=== PATIENT | female | born 1995 | race Caucasian/White ===

== ENCOUNTER 2018-02-17 16:56 | Emergency (ER) | payer OTHER ==
[~2018-02-17] VITALS: Ht 157.5 cm; Wt 59.6 kg
[~2018-02-17 16:56] MED LIST: Bactrim Ds Tab1 EACH PO; CIPR500 PO; HUMALOG; INS70/30I; INSN100I SC; INSR10I SC; INSUASPI; INSUASPI SC; LAMO50 PO; LEVE500 PO; Peri-Colace Ta1 EACH PO; Prenatabs FA T1 EACH PO; RXHYDMOR2 PO; SULTRIDS PO; Triamcinolone A15 GM TOP; ZONI100 PO
[2018-02-17] MEDS ORDERED: LAMOTRIGINE100 MG PO (17:15)
[2018-02-17] MEDS ORDERED: LAMOTRIGINE300 MG PO (17:15)
[2018-02-17 18:43] LABS: BASOPHILS ABSOLUTE AUTO 0.04 K/mm3 (0.00-0.23); BASOPHILS PERCENT AUTO 1 % (0-2); EOSINOPHILS ABSOLUTE AUTO 0.07 K/mm3 (0.00-0.68); EOSINOPHILS PERCENT AUTO 1 % (0-6); Hematocrit 43.5 % (33.0-51.0); Hemoglobin 15.5 g/dL (11.5-16.0); IMMATURE GRAN ABSOLUTE AUTO 0.01 K/mm3 (0.00-0.10); IMMATURE GRAN PERCENT AUTO 0 % (0-1); LYMPHOCYTES ABSOLUTE AUTO 2.02 K/mm3 (0.84-5.20); LYMPHOCYTES PERCENT AUTO 33 % (21-46); MONOCYTES ABSOLUTE AUTO 0.42 K/mm3 (0.16-1.47); MONOCYTES PERCENT AUTO 7 % (4-13); Mean Corpuscular HGB 30.8 pg (26.0-34.0); Mean Corpuscular HGB Conc 35.6 g/dL (31.5-36.5); Mean Corpuscular Volume 87 fL (80-100); NEUTROPHILS ABSOLUTE AUTO 3.52 K/mm3 (1.96-9.15); NEUTROPHILS PERCENT AUTO 58 % (41-73); Platelet Count 220 K/mm3 (150-400); RDW Coefficient Variation 11.7 % (11.7-14.2); RDW Standard Deviation 37.1 fL (35.1-46.3); Red Blood Cell Count 5.03 M/mm3 (3.80-5.20); White Blood Cell Count 6.08 K/mm3 (4.00-11.30)
[2018-02-17 19:06] LABS: Alanine Aminotransfer (ALT/SGP 21 U/L (12-78); Albumin, Blood 4.2 g/dL (3.4-5.0); Albumin/Globulin Ratio 1.2 (0.8-1.8); Alk Phos 100 U/L (50-136); Anion Gap 7 mmol/L (6-16); Aspartate Aminotrans (AST/SGOT 14 U/L (12-37); Beta HCG, Quantitative, Serum 452 mIU/mL (0-3); Bilirubin, Total 1.3 mg/dL (0.1-1.0); Blood Urea Nitrogen 14 mg/dL (8-24); CO2, Blood 27 mmol/L (21-32); Calcium, Blood 9.3 mg/dL (8.5-10.1); Chloride, Blood 106 mmol/L (98-108); Creatinine, Blood 0.78 mg/dL (0.40-1.00); Globulin, Blood 3.5 g/dL (2.2-4.0); Glomerular Filtration Rate >60 (60-); Glucose, Blood 79 mg/dL (70-99); Potassium, Blood 3.6 mmol/L (3.5-5.5); Sodium, Blood 140 mmol/L (136-145); Total Protein, Blood 7.7 g/dL (6.4-8.2)
== END 2018-02-17 19:50 | disposition home or self-care (01) ==
LOC: ER 16:56
PROVIDERS: Internal Medicine
DX: O99.89 Other specified diseases and conditions complicating pregnancy, childbirth and the puerperium (principal); R10.2 Pelvic and perineal pain; Z88.0 Allergy status to penicillin; Z79.899 Other long term (current) drug therapy; Z79.4 Long term (current) use of insulin; O24.911 Unspecified diabetes mellitus in pregnancy, first trimester; E10.9 Type 1 diabetes mellitus without complications
CPT/HCPCS: 36415; 76801; 76817; 76830; 80053; 82947; 84702; 85025; 86900; 86901; 99284

== ENCOUNTER 2018-03-02 21:08 | Emergency (ER) | payer OTHER ==
[~2018-03-02] VITALS: Ht 157.5 cm; Wt 61.7 kg
[~2018-03-02 21:08] MED LIST changes: +LAMOTRIGINE100 MG PO; +LAMOTRIGINE300 MG PO
[2018-03-02] MEDS ORDERED: DIAZ1KIT4 (22:31)
[2018-03-02] MEDS ORDERED: FOLI1 PO (22:32)
[2018-03-02 22:40] LABS: BASOPHILS ABSOLUTE AUTO 0.03 K/mm3 (0.00-0.23); BASOPHILS PERCENT AUTO 0 % (0-2); EOSINOPHILS ABSOLUTE AUTO 0.06 K/mm3 (0.00-0.68); EOSINOPHILS PERCENT AUTO 1 % (0-6); Hematocrit 44.4 % (33.0-51.0); Hemoglobin 15.3 g/dL (11.5-16.0); IMMATURE GRAN ABSOLUTE AUTO 0.02 K/mm3 (0.00-0.10); IMMATURE GRAN PERCENT AUTO 0 % (0-1); LYMPHOCYTES ABSOLUTE AUTO 1.45 K/mm3 (0.84-5.20); LYMPHOCYTES PERCENT AUTO 19 % (21-46); MONOCYTES ABSOLUTE AUTO 0.44 K/mm3 (0.16-1.47); MONOCYTES PERCENT AUTO 6 % (4-13); Mean Corpuscular HGB 30.6 pg (26.0-34.0); Mean Corpuscular HGB Conc 34.5 g/dL (31.5-36.5); Mean Corpuscular Volume 89 fL (80-100); Mean Platelet Volume 9.3 fL (9.1-12.4); NEUTROPHILS ABSOLUTE AUTO 5.71 K/mm3 (1.96-9.15); NEUTROPHILS PERCENT AUTO 74 % (41-73); Platelet Count 191 K/mm3 (150-400); RDW Standard Deviation 38.9 fL (35.1-46.3); White Blood Cell Count 7.71 K/mm3 (4.00-11.30)
[2018-03-02 22:56] LABS: Alanine Aminotransfer (ALT/SGP 23 U/L (12-78); Albumin, Blood 4.4 g/dL (3.4-5.0); Albumin/Globulin Ratio 1.3 (0.8-1.8); Alk Phos 98 U/L (50-136); Anion Gap 6 mmol/L (6-16); Aspartate Aminotrans (AST/SGOT 15 U/L (12-37); Beta HCG, Quantitative, Serum 591 mIU/mL (0-3); Bilirubin, Total 0.3 mg/dL (0.1-1.0); Blood Urea Nitrogen 9 mg/dL (8-24); Bun/Creatinine Ratio 13.4 (12.0-20.0); CO2, Blood 30 mmol/L (21-32); Calcium, Blood 8.7 mg/dL (8.5-10.1); Chloride, Blood 104 mmol/L (98-108); Creatinine, Blood 0.67 mg/dL (0.40-1.00); Globulin, Blood 3.5 g/dL (2.2-4.0); Glomerular Filtration Rate >60 (60-); Glucose, Blood 118 mg/dL (70-99); Potassium, Blood 3.8 mmol/L (3.5-5.5); Sodium, Blood 140 mmol/L (136-145); Total Protein, Blood 7.9 g/dL (6.4-8.2)
[2018-03-02 23:01] LABS: Source, Urine Clean Catch
[2018-03-02 23:05] LABS: Appearance, Urine Cloudy (Clear); Bilirubin, Urine Neg (Neg); Blood, Urine 5+ (Neg); Color, Urine Yellow (P-Yellow); Glucose Qualitative, Urine Neg (Neg); Ketones, Urine Neg (Neg); Leukocyte Esterase, Urine 2+ (Neg); Nitrite, Urine Neg (Neg); Protein, Urine Neg (Neg); Urobilinogen, Urine NORM (Normal)
[2018-03-02 23:13] LABS: Amorphous Light (0-Heavy); Bacteria Many /hpf; Red Blood Cells, Urine TNTC /hpf (0-2); Squamous Epithelial Cells Rare /hpf (Few); White Blood Cells, Urine 0-2 /hpf (0-5)
[2018-03-03] MEDS ORDERED: Macrobid 100 M100 MG PO (00:07)
== END 2018-03-03 00:57 | disposition home or self-care (01) ==
LOC: ER 21:08
PROVIDERS: Emergency Medicine
DX: O03.4 Incomplete spontaneous abortion without complication (principal); N39.0 Urinary tract infection, site not specified; Z88.0 Allergy status to penicillin; Z79.899 Other long term (current) drug therapy; Z79.4 Long term (current) use of insulin; E10.9 Type 1 diabetes mellitus without complications
CPT/HCPCS: 36415; 76817; 80053; 81001; 81025; 84702; 85025; 86900; 86901; 87086; 96372; 99284-25; J2790

== ENCOUNTER → 2018-11-26 | Outpatient (CLI) | payer SELFPAY ==
[~2018-11-26] MED LIST changes: +DIAZ1KIT4; +FOLI1 PO; +Macrobid 100 M100 MG PO
== END | disposition home or self-care (01) ==
LOC: LAB SHORT 12:19 → LAB 12:19
PROVIDERS: Obstetrics & Gynecology
DX: Z01.419 Encounter for gynecological examination (general) (routine) without abnormal findings (principal)
CPT/HCPCS: G0123

== ENCOUNTER → 2020-11-15 | Outpatient (CLI) | payer OTHER ==
[2020-11-15 14:59] LABS: T. vaginalis (DNA Probe) Negative (NEGATIVE)
[2020-11-15 15:00] LABS: Candida species (DNA Probe) Negative (NEGATIVE); G. vaginalis (DNA Probe) Positive (NEGATIVE)
[2020-11-18 13:10] LABS: CHLAMYDIA TRACHOMATIS, NAA Negative (Negative)
== END | disposition home or self-care (01) ==
LOC: LAB 11:13 → LAB SHORT 11:13
PROVIDERS: Advanced Practice Midwife
DX: Z01.419 Encounter for gynecological examination (general) (routine) without abnormal findings (principal); Z11.3 Encounter for screening for infections with a predominantly sexual mode of transmission; N76.0 Acute vaginitis
CPT/HCPCS: 87480; 87491; 87510; 87591; 87660; G0123